=== PATIENT | female | born 1955 | race Caucasian/White ===

== ENCOUNTER → 2024-09-27 | Day surgery (SDC) | payer MEDICARE ==
[~2024-09-27] MED LIST: AMLODIPINE BESYL5 MG PO; ASPIRIN81 MG PO; CLOBETASOL1 EA/15 GM PO; FAMOTIDINE20 MG PO; FIBER PO; HYDROCHLOROTHIA25 MG PO; KETOCONAZOLE15 GM TOP; LIDOCAINE HCL 2% LOCAL INJ 5 ML SDV VIAL INJ ONE; LIPITOR10 MG PO; POLYETHYLENE GL17 GM PO; PROPOFOL IV EMULSION 10 MG/ML 20 ML VIAL ONE; VITAMIN D3 PO
[2024-09-27] MEDS: LACTATED RINGER'S 1,000 ML ONE (09:08)
[2024-09-27 11:40] VITALS: TEMP 98.8
[2024-09-27 12:10] VITALS: BP 124/74; PULSE 68; RESP 15; O2SAT 99
== END | disposition home or self-care (01) ==
LOC: OR 08:18
PROVIDERS: ATTEND Internal Medicine Gastroenterology
DX: Z12.11 Encounter for screening for malignant neoplasm of colon (principal); D12.2 Benign neoplasm of ascending colon; K57.30 Diverticulosis of large intestine without perforation or abscess without bleeding; K62.89 Other specified diseases of anus and rectum; K21.9 Gastro-esophageal reflux disease without esophagitis; K59.00 Constipation, unspecified; K74.00 Hepatic fibrosis, unspecified; K75.9 Inflammatory liver disease, unspecified; G47.33 Obstructive sleep apnea (adult) (pediatric); I10 Essential (primary) hypertension; E78.5 Hyperlipidemia, unspecified; F41.9 Anxiety disorder, unspecified; Z01.810 Encounter for preprocedural cardiovascular examination; Z79.82 Long term (current) use of aspirin; Z79.899 Other long term (current) drug therapy; Z80.0 Family history of malignant neoplasm of digestive organs
CPT/HCPCS: 45380; 88305; 93005; J2003; J2704; J7121; 45378; 45384

== ENCOUNTER 2025-01-18 16:05 | Inpatient (IN) | payer MEDICARE ==
[~2025-01-18] VITALS: Ht 160 cm; Wt 62.6 kg
[~2025-01-18 16:05] MED LIST changes: -IOPAMIDOL 370 MG/ML 100 ML INFUS..BTL INJ ONE
[2025-01-18 18:09] LABS: BASOPHILS # (AUTO) 0.1 (0.0-0.1); BASOPHILS % 0.7 % (0.0-1.0); EOSINOPHILS # (AUTO) 0.1 (0.0-0.4); EOSINOPHILS % 0.5 % (0.0-6.0); HEMATOCRIT 45.7 % (34.2-44.1); HEMOGLOBIN 16.9 g/dL (12.0-16.0); LYMPHOCYTES # (AUTO) 1.5 (1.0-3.2); LYMPHOCYTES % 14.5 % (18.0-39.1); MEAN CORPUSCULAR HEMOGLOBIN 29.5 pg (28-32); MEAN CORPUSCULAR VOLUME 79.9 fL (81-99); MONOCYTES # (AUTO) 1.2 (0.2-0.8); MONOCYTES % 11.3 % (4.4-11.3); NEUTROPHILS # (AUTO) 7.6 (2.1-6.9); NEUTROPHILS % 72.7 % (38.7-80.0); PLATELET COUNT 364 x10e3/uL (140-360); RED BLOOD COUNT 5.72 x10e6/uL (3.6-5.1); RED CELL DISTRIBUTION WIDTH 12.7 % (11.7-14.4)
[2025-01-18 18:23] LABS: ALBUMIN 4.5 g/dL (3.5-5.0); ALBUMIN/GLOBULIN RATIO 1.2 (0.8-2.0); CALCIUM 10.2 mg/dL (8.4-10.2); CREATININE, SERUM 0.81 mg/dL (0.57-1.11); TOTAL PROTEIN 8.2 g/dL (6.5-8.1)
[2025-01-18] MEDS ORDERED: Morphine 4mg INJECTION 4 MG/ML INJ IV PRN (18:30)
[2025-01-18] MEDS ORDERED: ONDANSETRON HCL INJ 2MG/ML 2ML 2 MG/ML VIAL IV PRN (18:30)
[2025-01-18 18:50] LABS: TROPONIN I 0.014 ng/mL (0-0.300)
[2025-01-18 19:03] VITALS: PULSE 85; RESP 14; TEMP 98
[2025-01-18] MEDS: SODIUM CHLORIDE 0.9% 1000ML 1,000 ML IV SCH (19:27)
[2025-01-18 21:15] VITALS: BP 164/89; PULSE 86; RESP 18; TEMP 97.8; O2SAT 100
[2025-01-19] VITALS (9 sets, daily range): BP systolic 117–149; BP diastolic 66–99; PULSE 59–80; RESP 17–20; TEMP 97.7–98.1; O2SAT 99–100
[2025-01-19 06:48] LABS: BASOPHILS # (AUTO) 0.1 (0.0-0.1); BASOPHILS % 0.6 % (0.0-1.0); EOSINOPHILS # (AUTO) 0.1 (0.0-0.4); EOSINOPHILS % 0.6 % (0.0-6.0); HEMATOCRIT 43.8 % (34.2-44.1); HEMOGLOBIN 16.3 g/dL (12.0-16.0); LYMPHOCYTES # (AUTO) 1.6 (1.0-3.2); MEAN CORPUSCULAR HEMOGLOBIN 29.6 pg (28-32); MEAN CORPUSCULAR HGB CONC 37.2 g/dL (31-35); MEAN CORPUSCULAR VOLUME 79.5 fL (81-99); MONOCYTES # (AUTO) 0.9 (0.2-0.8); NEUTROPHILS # (AUTO) 5.9 (2.1-6.9); NEUTROPHILS % 68.7 % (38.7-80.0); PLATELET COUNT 338 x10e3/uL (140-360); RED BLOOD COUNT 5.51 x10e6/uL (3.6-5.1); RED CELL DISTRIBUTION WIDTH 12.8 % (11.7-14.4); WHITE BLOOD COUNT 8.54 x10e3/uL (4.8-10.8)
[2025-01-19 07:20] LABS: ALBUMIN 4.2 g/dL (3.5-5.0); ALBUMIN/GLOBULIN RATIO 1.2 (0.8-2.0); BILIRUBIN,TOTAL 1.1 mg/dL (0.2-1.2); CALCIUM 9.7 mg/dL (8.4-10.2); CREATININE, SERUM 0.71 mg/dL (0.57-1.11); TOTAL PROTEIN 7.8 g/dL (6.5-8.1)
[2025-01-19] MEDS ORDERED: ACETAMINOPHEN 325 MG TAB PO PRN (11:30)
[2025-01-19] MEDS: METOPROLOL TARTRATE 25 MG TAB PO SCH (13:13)
[2025-01-19] MEDS: POTASSIUM CHLORIDE 10MEQ EA PO ONE (13:14)
[2025-01-19 13:50] LABS: BILIRUBIN,URINE NEGATIVE (NEGATIVE); CLARITY,URINE SL CLOUDY (CLEAR); COLOR,URINE YELLOW (YELLOW); GLUCOSE, URINE NEGATIVE (NEGATIVE); KETONES,URINE NEGATIVE (NEGATIVE); LEUKOCYTE ESTERASE ,URINE NEGATIVE (NEGATIVE); NITRITE,URINE NEGATIVE (NEGATIVE); PH,URINE 7 (5 - 7); PROTEIN,URINE DIPSTICK NEGATIVE (NEGATIVE); URINE UROBILINOGEN 0.2 mg/dL (0.2 - 1)
[2025-01-19 14:01] LABS: BACTERIA,URINE MANY /HPF; EPITHELIAL CELLS,URINE MODERATE /LPF; WBC,URINE (MAN) 0-5 /HPF (0-5)
[2025-01-19] MEDS: FAMOTIDINE 20 MG TAB PO SCH (17:22)
[2025-01-19] MEDS: ATORVASTATIN 10 MG TAB PO SCH (21:12)
[2025-01-20] VITALS (7 sets, daily range): BP systolic 121–153; BP diastolic 69–71; PULSE 61–77; RESP 17–18; TEMP 97.7–98.2; O2SAT 97–100
[2025-01-20 06:39] LABS: BASOPHILS # (AUTO) 0.1 (0.0-0.1); BASOPHILS % 0.9 % (0.0-1.0); EOSINOPHILS # (AUTO) 0.1 (0.0-0.4); EOSINOPHILS % 1.8 % (0.0-6.0); HEMATOCRIT 42.7 % (34.2-44.1); HEMOGLOBIN 14.9 g/dL (12.0-16.0); LYMPHOCYTES # (AUTO) 1.8 (1.0-3.2); LYMPHOCYTES % 25.3 % (18.0-39.1); MEAN CORPUSCULAR HEMOGLOBIN 29.3 pg (28-32); MEAN CORPUSCULAR HGB CONC 34.9 g/dL (31-35); MEAN CORPUSCULAR VOLUME 84.1 fL (81-99); MONOCYTES # (AUTO) 0.7 (0.2-0.8); MONOCYTES % 10.5 % (4.4-11.3); NEUTROPHILS # (AUTO) 4.3 (2.1-6.9); NEUTROPHILS % 61.1 % (38.7-80.0); PLATELET COUNT 271 x10e3/uL (140-360); RED BLOOD COUNT 5.08 x10e6/uL (3.6-5.1); RED CELL DISTRIBUTION WIDTH 13.2 % (11.7-14.4); WHITE BLOOD COUNT 7.03 x10e3/uL (4.8-10.8)
[2025-01-20 07:12] LABS: ANION GAP 15.5 mmol/L (8-16); CREATININE, SERUM 0.69 mg/dL (0.57-1.11); POTASSIUM 3.5 mmol/L (3.5-5.1)
[2025-01-20] MEDS: AMLODIPINE BESYLATE 5 MG TAB PO SCH (09:25)
[2025-01-20] MEDS: POLYETHYLENE GLYCOL 3350 17 GM PACK PO SCH (09:25)
[2025-01-20] MEDS: FLUCONAZOLE 100 MG TAB PO ONE (17:44)
[2025-01-20] MEDS ORDERED: FAMOTIDINE 20 MG TAB PO SCH (18:30)
== END 2025-01-20 19:48 | disposition home or self-care (01) | DRG 641 ==
LOC: ER 16:36 → ERHOLD 18:27 → MED/SURG3 21:56
PROVIDERS: ADMIT Internal Medicine; ATTEND Internal Medicine
DX: E87.1 Hypo-osmolality and hyponatremia (principal); C64.2 Malignant neoplasm of left kidney, except renal pelvis; N39.0 Urinary tract infection, site not specified; R53.81 Other malaise; K76.0 Fatty (change of) liver, not elsewhere classified; G47.30 Sleep apnea, unspecified; E78.00 Pure hypercholesterolemia, unspecified; I10 Essential (primary) hypertension; Z79.82 Long term (current) use of aspirin; K57.90 Diverticulosis of intestine, part unspecified, without perforation or abscess without bleeding; Z99.89 Dependence on other enabling machines and devices; R10.13 Epigastric pain; Z80.0 Family history of malignant neoplasm of digestive organs; T50.2X5A Adverse effect of carbonic-anhydrase inhibitors, benzothiadiazides and other diuretics, initial encounter; Y92.009 Unspecified place in unspecified non-institutional (private) residence as the place of occurrence of the external cause
CPT/HCPCS: 36415; 71046; 80048; 80053; 81001; 82550; 82607; 83036; 83690; 83880; 84443; 84484; 85025; 93005; 99284; J0696; J7030

== ENCOUNTER → 2025-01-18 | Outpatient (REF) | payer MEDICARE ==
[~2025-01-18] MED LIST changes: +CLOBETASOL1 EA/15 GM BLADIN; -CLOBETASOL1 EA/15 GM PO; +IOPAMIDOL 370 MG/ML 100 ML INFUS..BTL INJ ONE; -LIDOCAINE HCL 2% LOCAL INJ 5 ML SDV VIAL INJ ONE; -PROPOFOL IV EMULSION 10 MG/ML 20 ML VIAL ONE
[2025-01-18 15:43] LABS: CREATININE, SERUM 0.78 mg/dL (0.57-1.11)
== END ==
LOC: CT 14:44
PROVIDERS: ATTEND Nurse Practitioner Family
DX: R10.9 Unspecified abdominal pain (principal)
CPT/HCPCS: 36415; 74177; 82565; 84520; Q9967

== ENCOUNTER 2025-03-13 10:18 | Inpatient (IN) | payer MEDICARE ==
[2025-03-10 11:48] LABS: BASOPHILS % 1.1 % (0.0-1.0); EOSINOPHILS % 3.2 % (0.0-6.0); LYMPHOCYTES % 25.2 % (18.0-39.1); MONOCYTES % 8.4 % (4.4-11.3); NEUTROPHILS % 61.7 % (38.7-80.0); RED CELL DISTRIBUTION WIDTH 13.1 % (11.7-14.4)
[2025-03-10 12:13] LABS: EST GLOMERULAR FILTRATION RATE 86.0 ML/MIN (>=60)
[2025-03-13] VITALS (30 sets, daily range): BP systolic 102–128; BP diastolic 48–66; PULSE 66–87; RESP 5–16; TEMP 94.9–96.4; O2SAT 92–98
[~2025-03-13] VITALS: Ht 160 cm; Wt 73.9 kg
[2025-03-13] MEDS ORDERED: FENTANYL CITRATE/PF 100MCG/2 ML INJ ONE (12:07)
[2025-03-13] MEDS ORDERED: LIDOCAINE HCL 2% LOCAL INJ 5 ML SDV VIAL INJ ONE (12:07)
[2025-03-13] MEDS ORDERED: ROCURONIUM BROMIDE 1 ML IV ONE (12:07)
[2025-03-13] MEDS ORDERED: ACETAMINOPHEN 1000 MG/100 ML 100 ML IV ONE (12:08)
[2025-03-13] MEDS ORDERED: PROPOFOL IV EMULSION 10 MG/ML 20 ML VIAL ONE (12:08)
[2025-03-13] MEDS ORDERED: SEVOFLURANE INHAL SOLN 250 ML PEN BTL ONE (12:08)
[2025-03-13] MEDS ORDERED: PHENYLEPHRINE HCL 1% 10 MG/ML VIAL ONE (13:33)
[2025-03-13] MEDS ORDERED: ONDANSETRON HCL INJ 2MG/ML 2ML 2 MG/ML VIAL IV PRN (13:45)
[2025-03-13] MEDS ORDERED: DIPHENHYDRAMINE HCL INJ 50 MG/ML VIAL IM PRN (13:45)
[2025-03-13] MEDS ORDERED: NALOXONE HCL INJ 0.4 MG/ML AMP IV PRN (13:45)
[2025-03-13] MEDS ORDERED: ONDANSETRON HCL INJ 2MG/ML 2ML 2 MG/ML VIAL ONE (13:47)
[2025-03-13] MEDS ORDERED: FAMOTIDINE 20 MG/2 ML VIAL IV ONE (13:47)
[2025-03-13] MEDS ORDERED: DEXAMETHASONE SOD PHOS INJ 4 MG/ML SDV ONE (13:47)
[2025-03-13] MEDS ORDERED: SUGAMMADEX SODIUM 200 MG/2 ML VIAL IV ONE (15:06)
[2025-03-13] MEDS: MORPHINE SULFATE 1 MG/ML 30ML PCA IV PRN (16:23)
[2025-03-13] MEDS: SODIUM CHLORIDE 0.9% 250ML IRRIG IR SCH (18:00)
[2025-03-13] MEDS: SODIUM CHLORIDE 0.9% 1000ML 1,000 ML IV SCH (18:00)
[2025-03-13 18:04] LABS: BASOPHILS % 0.3 % (0.0-1.0); EOSINOPHILS % 0.1 % (0.0-6.0); LYMPHOCYTES % 13.3 % (18.0-39.1); MONOCYTES % 2.8 % (4.4-11.3); NEUTROPHILS % 83.1 % (38.7-80.0); RED CELL DISTRIBUTION WIDTH 13.2 % (11.7-14.4)
[2025-03-13 18:27] LABS: EST GLOMERULAR FILTRATION RATE 73.0 ML/MIN (>=60)
[2025-03-13] MEDS: CEFAZOLIN SODIUM 2 GM ONE (18:47)
[2025-03-13] MEDS: SODIUM CHLORIDE 0.9% 1000ML 1,000 ML ONE ×2 (18:47→18:48)
[2025-03-13 19:58] LABS: EST GLOMERULAR FILTRATION RATE 56.0 ML/MIN (>=60)
[2025-03-13] MEDS: POTASSIUM CHLORIDE 20MEQ/100ML 200 ML IV ONE (20:20)
[2025-03-14] VITALS (46 sets, daily range): BP systolic 88–143; BP diastolic 49–88; PULSE 68–90; RESP 5–19; TEMP 96.8–99.5; O2SAT 92–98
[2025-03-14 06:34] LABS: BASOPHILS % 0.1 % (0.0-1.0); EOSINOPHILS % 0.0 % (0.0-6.0); LYMPHOCYTES % 4.2 % (18.0-39.1); MONOCYTES % 7.7 % (4.4-11.3); NEUTROPHILS % 87.5 % (38.7-80.0); RED CELL DISTRIBUTION WIDTH 13.1 % (11.7-14.4)
[2025-03-14 07:06] LABS: EST GLOMERULAR FILTRATION RATE 67.0 ML/MIN (>=60)
[2025-03-14] MEDS: ACETAMINOPHEN 1000 MG/100 ML IV PRN (11:19)
[2025-03-15] VITALS (40 sets, daily range): BP systolic 79–138; BP diastolic 46–82; PULSE 57–87; RESP 10–20; TEMP 98.5–99.2; O2SAT 95–99
[2025-03-15] MEDS: ACETAMINOPHEN 1000 MG/100 ML IV PRN (00:06)
[2025-03-15 05:37] LABS: BASOPHILS % 0.1 % (0.0-1.0); EOSINOPHILS % 0.1 % (0.0-6.0); LYMPHOCYTES % 12.2 % (18.0-39.1); MONOCYTES % 7.9 % (4.4-11.3); NEUTROPHILS % 79.2 % (38.7-80.0); RED CELL DISTRIBUTION WIDTH 13.3 % (11.7-14.4)
[2025-03-15 05:56] LABS: EST GLOMERULAR FILTRATION RATE 75.0 ML/MIN (>=60)
[2025-03-15] MEDS ORDERED: DEXTROSE 50% SYRINGE 50 ML IV PRN (08:15)
[2025-03-15] MEDS ORDERED: MELATONIN 5 MG TABLET PO PRN (08:15)
[2025-03-15] MEDS ORDERED: ALBUTEROL/IPRATROPIUM 3 ML NEB NEB PRN (08:15)
[2025-03-15] MEDS ORDERED: BENZONATATE 100 MG CAP PO PRN (08:15)
[2025-03-15] MEDS ORDERED: HYDRALAZINE HCL 20 MG/ML VIAL IV PRN (08:15)
[2025-03-15] MEDS ORDERED: POTASSIUM CHLORIDE 20 MEQ TAB CR PO PRN (08:15)
[2025-03-15] MEDS ORDERED: DOCUSATE SODIUM 100 MG CAP PO PRN (08:15)
[2025-03-15] MEDS ORDERED: DIPHENHYDRAMINE HCL 25 MG CAP PO PRN (08:15)
[2025-03-16] VITALS (46 sets, daily range): BP systolic 81–147; BP diastolic 37–134; PULSE 64–93; RESP 12–28; TEMP 97.5–98.9; O2SAT 92–100
[2025-03-16] MEDS: ONDANSETRON HCL INJ 2MG/ML 2ML 2 MG/ML VIAL IV PRN (00:24)
[2025-03-16] MEDS: ACETAMINOPHEN 325 MG TAB PO PRN (00:25)
[2025-03-16] MEDS: SIMETHICONE 80 MG CHEW PO PRN (00:43)
[2025-03-16 06:54] LABS: BASOPHILS % 0.4 % (0.0-1.0); EOSINOPHILS % 0.7 % (0.0-6.0); LYMPHOCYTES % 11.8 % (18.0-39.1); MONOCYTES % 9.5 % (4.4-11.3); NEUTROPHILS % 77.1 % (38.7-80.0); RED CELL DISTRIBUTION WIDTH 12.8 % (11.7-14.4)
[2025-03-16 07:17] LABS: EST GLOMERULAR FILTRATION RATE 80.0 ML/MIN (>=60)
[2025-03-16] MEDS: BISACODYL 10 MG SUPP PR ONE (07:48)
[2025-03-16] MEDS: PANTOPRAZOLE SOD 40 MG TABEC PO SCH (07:48)
[2025-03-16] MEDS: SENNOSIDES 8.6 MG TAB PO SCH (09:14)
[2025-03-16] MEDS: ACETAMINOPHEN/CODEINE 300MG - 30MG TAB PO PRN (10:41)
[2025-03-17] VITALS (11 sets, daily range): BP systolic 105–147; BP diastolic 62–95; PULSE 65–98; RESP 15–20; TEMP 97.5–98.7; O2SAT 95–100
[2025-03-17 05:14] LABS: BASOPHILS % 0.4 % (0.0-1.0); EOSINOPHILS % 2.2 % (0.0-6.0); LYMPHOCYTES % 15.2 % (18.0-39.1); MONOCYTES % 11.2 % (4.4-11.3); NEUTROPHILS % 70.8 % (38.7-80.0); RED CELL DISTRIBUTION WIDTH 13.1 % (11.7-14.4)
[2025-03-17 05:44] LABS: EST GLOMERULAR FILTRATION RATE 75.0 ML/MIN (>=60)
[2025-03-17] MEDS: SODIUM CHLORIDE 0.9% 1000ML 1,000 ML IV SCH (08:30)
== END 2025-03-17 18:35 | disposition home or self-care (01) | DRG 657 ==
LOC: OR 10:18 → PACU V 14:01 → ICU 17:27
PROVIDERS: ADMIT Internal Medicine; ATTEND Internal Medicine
PROC: 0TT10ZZ Resection of Left Kidney, Open Approach (ICD-10-PCS; principal; 2025-03-14)
PROC: 0W9B00Z Drainage of Left Pleural Cavity with Drainage Device, Open Approach (ICD-10-PCS; 2025-03-14)
DX: C64.2 Malignant neoplasm of left kidney, except renal pelvis (principal); E87.21 Acute metabolic acidosis; J93.9 Pneumothorax, unspecified; I10 Essential (primary) hypertension; G47.33 Obstructive sleep apnea (adult) (pediatric); K57.90 Diverticulosis of intestine, part unspecified, without perforation or abscess without bleeding; Z79.82 Long term (current) use of aspirin; Z99.89 Dependence on other enabling machines and devices
CPT/HCPCS: 36415; 71045; 71046; 80048; 83735; 85025; 86850; 86900; 86920; 88307; 94799; 99252; J0690; J1100; J1308; J2003; J2270; J2371; J2405; J2470; J3480; J7030

== ENCOUNTER → 2025-05-26 | Outpatient (REF) | payer MEDICARE | LOC: US 10:47 | PROVIDERS: ATTEND Urology | DX: C64.2 Malignant neoplasm of left kidney, except renal pelvis (principal) | CPT/HCPCS: 71046; 76770; 76857 ==